=== PATIENT | female | born 1945 | race Caucasian/White ===

== ENCOUNTER 2017-08-12 08:00 | Outpatient (CLI) | payer MEDICARE, BC | END 2017-08-12 08:01 | disposition home or self-care (01) | LOC: LAB.R 08:00 | PROVIDERS: ATTEND Physician Assistant Medical | DX: N39.0 Urinary tract infection, site not specified (principal) | CPT/HCPCS: 87086; 87181 ==

== ENCOUNTER 2017-08-18 09:36 | Outpatient (CLI) | payer MEDICARE, BC | END 2017-08-18 09:37 | disposition home or self-care (01) | LOC: LAB 09:36 | PROVIDERS: ATTEND Internal Medicine | DX: E03.8 Other specified hypothyroidism (principal) | CPT/HCPCS: 36415; 84443 ==

== ENCOUNTER 2017-10-03 08:35 | Outpatient (CLI) | payer MEDICARE, BC | END 2017-10-03 08:36 | disposition home or self-care (01) | LOC: LAB.R 08:35 | PROVIDERS: ATTEND Physician Assistant Medical | DX: R35.0 Frequency of micturition (principal); R14.0 Abdominal distension (gaseous) | CPT/HCPCS: 87086 ==

== ENCOUNTER 2017-10-20 08:25 | Outpatient (CLI) | payer MEDICARE, BC ==
--- NOTE | 2017-10-20 11:30 | Ultrasound Report ---
Procedure Date: 10/20/2017 Accession Number: [id number] / [id number] Procedure: US - Pelvic w/Transvaginal CPT Code: FULL RESULT: EXAM: PELVIC ULTRASOUND EXAM DATE: 10/20/2017 09:21 AM. CLINICAL HISTORY: Urinary frequency, bloating. COMPARISON: None. TECHNIQUE: Realtime transabdominal pelvic scan performed to identify the uterus and adnexa and as an overview of other pelvic structures, followed by transvaginal scan to provide greater detail of the uterus and adnexa, with static image documentation. FINDINGS: Uterus: 5.7 x 3.9 x 2.6 cm, volume 30 cc. Anteverted position. Normal overall size and echotexture. Masses: None. Endometrium: 5 mm. Normal. Cervix: Unremarkable. Right Ovary: 5 x 3.5 x 3.8 cm, volume 35 cc. A complex cyst measuring 4.2 x 3.7 x 2.8 cm with internal septations and questionable solid component is identified. Left Ovary: Not seen. Per the nuclear medical technologist conversation with the patient, this has been surgically removed. Free Fluid: Small amount of free fluid is identified, felt to be within physiologic limits. Other: None. IMPRESSION: Right adnexal complex cystic mass. Abnormal finding in a postmenopausal patient. Recommend referral to gynecology for surgical evaluation/management. RADIA
== END 2017-10-20 08:26 | disposition home or self-care (01) ==
LOC: DI 08:25
PROVIDERS: ATTEND Physician Assistant Medical
DX: N94.89 Other specified conditions associated with female genital organs and menstrual cycle (principal); R35.0 Frequency of micturition; R14.0 Abdominal distension (gaseous); N83.9 Noninflammatory disorder of ovary, fallopian tube and broad ligament, unspecified
CPT/HCPCS: 76830; 76856; 86304

== ENCOUNTER 2017-10-20 19:34 | Outpatient (CLI) | payer MEDICARE, BC | END 2017-10-20 19:35 | disposition home or self-care (01) | LOC: LAB 19:34 | PROVIDERS: ATTEND Physician Assistant Medical | DX: N83.9 Noninflammatory disorder of ovary, fallopian tube and broad ligament, unspecified (principal) | CPT/HCPCS: 86304 ==

== ENCOUNTER 2019-08-01 08:08 | Emergency (ER) | payer MEDICARE, BC ==
--- NOTE | 2019-08-01 08:46 | ED Physician Documentation ---
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 She has had these come on slowly over the past 3 days and she has come in now concerned about urinary tract infection. She has had urinary tract infection only remotely and is usually otherwise healthy. She has had prior back surgery she has had an oopherectomy and orthopedic injuries. She takes some Synthroid and something for nasal drainage but is otherwise healthy. Review of Systems Constitutional: reports: Fever, Chills Ears: denies: Ear pain Nose: reports: Rhinorrhea / runny nose (similar to always). denies: Congestion Cardiac: denies: Chest pain / pressure Respiratory: denies: Dyspnea, Cough GI: reports: Abdominal Pain, Nausea. denies: Vomiting, Constipation, Diarrhea : reports: Dysuria, Frequency Skin: denies: Rash Musculoskeletal: reports: Back pain. denies: Neck pain, Extremity pain Neurologic: denies: Generalized weakness, Focal weakness, Numbness PD PAST MEDICAL HISTORY - Past Medical History Past Medical History: No Endocrine/Autoimmune: HyPERthyroidism - Past Surgical History Past Surgical History: No - Present Medications Home Medications: Ambulatory Orders Medication Instructions Recorded Confirmed Alendronate [Fosamax] 70 mg PO 08/01/19 Azelastine/Fluticasone 23 gm NS 08/01/19 [Azelastin-Flutic 137-50Mcg [facility]] Fluticasone Propionate [Flovent 50 mcg IH 08/01/19 Diskus] Levothyroxine [Synthroid] 125 mcg PO QDAC 08/01/19 08/01/19 Sulfamethoxazole/Trimethoprim 1 each PO BID #14 tablet 08/01/19 [Sulfamethoxazole-Tmp Ds Tablet] - Allergies Allergies/Adverse Reactions: Allergies Allergy/AdvReac Type Severity Reaction Status Date / Time hydrocodone Allergy Hives Verified 08/01/19 08:18 Opioids - Morphine Analogues Allergy Hives Verified 08/01/19 08:18 Penicillins Allergy Hives Verified 08/01/19 08:18 tramadol Allergy Hives Verified 08/01/19 08:18 - Social History Does the pt smoke?: No Smoking Status: Never smoker Does the pt drink ETOH?: No Does the pt have substance abuse?: No - Immunizations Immunizations are current?: Yes PD ED PE NORMAL - Vitals Vital signs reviewed: Yes (low grade fever) - General General: Alert and oriented X 3, No acute distress, Well developed/nourished, 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, No motor deficit, No sensory deficit, Normal speech Eye Opening: Spontaneous Motor: Obeys Commands Verbal: Oriented GCS Score: 15 - Psych Psych: Normal mood, Normal affect Results - Vitals Vitals: Vital Signs - 24 hr 08/01/19 08:14 Temperature 37.6 C H Heart Rate 100 Respiratory 18 Rate Blood Pressure 126/69 O2 Saturation 95 Oxygen O2 Source Room air - Labs Labs: Laboratory Tests 08/01/19 08:22 Urine Color ORANGE Urine Clarity CLEAR Urine pH 5.5 Ur Specific [place] 1.010 Urine Protein Urine Glucose (UA) Urine Ketones NEGATIVE Urine Occult Blood Urine Nitrite Urine Bilirubin SMALL H Urine Urobilinogen Ur Leukocyte Esterase Urine RBC 0-5 Urine WBC >25 H Ur Epithelial Cells RARE Renal Tubular Ur Squamous Epith Cells FEW Squamous Urine Bacteria Moderate H Ur Microscopic Review INDICATED Urine Culture Comments INDICATED PD MEDICAL DECISION MAKING - ED course Complexity details: reviewed old records, reviewed results, re-evaluated patient, considered differential, d/w patient ED course: 73-year-old female with urinary tract symptoms nausea fever and flank pain appears to have pyelonephritis. She does not appear particularly ill and has survived most of her illnesses without significant problems. She is administered Rocephin 1 g intramuscular and we will place her on some . Departure - Departure Disposition: Home, Self Care Clinical Impression: Pyelonephritis Condition: Stable Instructions: ED Kidney Infec Female Follow-Up: [facility] [place] [Provider Group] Prescriptions: Sulfamethoxazole/Trimethoprim [Sulfamethoxazole-Tmp Ds Tablet] 1 each PO BID #14 tablet
[2019-08-01 08:55] LABS: KETONES,URINE (UA) NEGATIVE (NEGATIVE); PH,URINE 5.5 PH (5.0-7.5)
[2019-08-01 08:58] LABS: CLARITY,URINE CLEAR (CLEAR)
[2019-08-01 09:01] LABS: BILIRUBIN,URINE SMALL (NEGATIVE); ICTOTEST,URINE POSITIVE
[2019-08-01 09:26] LABS: BACTERIA,URINE Moderate /HPF (None Seen); EPITHELIAL CELLS,UR RARE Renal Tubular /HPF (<= Few); SQUAMOUS EPITHELIAL CELL,UR FEW Squamous (<= Few)
[2019-08-01 09:27] LABS: RBC,URINE 0-5 /HPF (0-5)
[2019-08-01] MEDS ORDERED: LIDOCAINE 1% 2 ML VIAL MC ONE (09:35)
[2019-08-01] MEDS ORDERED: cefTRIAXone 1 GM VIAL IM STA (09:35)
[2019-08-01 10:14] VITALS: BP 136/74
== END 2019-08-01 10:13 | disposition home or self-care (01) ==
LOC: ED 08:08
DX: N12 Tubulo-interstitial nephritis, not specified as acute or chronic (principal)
CPT/HCPCS: 81001; 81003; 87086; 87181; 96372; 99283; 99284

== ENCOUNTER 2019-10-29 08:00 | Outpatient (CLI) | payer MEDICARE, BC ==
--- NOTE | 2019-10-29 14:16 | XRAY Report ---
PROCEDURE: Knee 2 View LT INDICATIONS: BURSITIS OF LEFT KNEE TECHNIQUE: 2 views of the left knee(s) were acquired. COMPARISON: 09/26/2015 FINDINGS: Bones: Prior internal fixation in proximal left tibial shaft is again seen. Hardware position is unch anged from prior study. No gross hardware loosening or failure. Mild tricompartmental osteoarthritis is seen more prominent in medial femoral tibial compartment. No acute fracture or dislocation. No rashard picious bony lesions. Soft tissues: Significant soft tissue swelling anterior to the tibial tuberosity near distal patella r tendon insertion is seen. No joint effusion. No suspicious soft tissue calcifications. IMPRESSION: 1. Significant soft tissue swelling anterior to distal patellar tendon concerning for bursitis. No gr oss patellar tendon rupture. 2. No acute fracture or dislocation. Prior internal fixation of proximal tibia. No gross hardware com plication. Mild tricompartmental osteoarthritis. Reviewed by: Keven Dumas MD on 10/29/2019 1:15 PM AKBRIAN Approved by: Keven Dumas MD on 10/29/2019 1:15 PM AKDT Station ID: [id number]
== END 2019-10-29 23:59 | disposition home or self-care (01) ==
LOC: DI.S 08:00
PROVIDERS: ATTEND Physician Assistant
DX: M17.12 Unilateral primary osteoarthritis, left knee (principal); R93.6 Abnormal findings on diagnostic imaging of limbs

== ENCOUNTER 2021-11-19 08:00 | Outpatient (CLI) | payer MEDICARE, BC | END 2021-11-19 23:59 | disposition home or self-care (01) | LOC: LAB.S 08:00 | PROVIDERS: ATTEND Physician Assistant | DX: N39.0 Urinary tract infection, site not specified (principal) | CPT/HCPCS: 87086; 87181 ==